=== PATIENT | male | born 1950 | race Caucasian/White ===

== ENCOUNTER 2017-09-10 11:55 | Emergency (ER) | payer MEDICARE, OTHER ==
[2017-09-10] MEDS ORDERED: ONDANSETRON HCL IV 4 MG/2 ML VIAL IVP ONE (12:03)
[2017-09-10] MEDS ORDERED: 0.9 % SODIUM CHLORIDE 1,000 ML BAG IV ONE (12:03)
--- NOTE | 2017-09-10 12:08 | Emergency Department Record ---
History of Present Illness - General Chief complaint: Vomiting Stated complaint: VOMITING/BODY ACHES Time Seen by Provider: 09/10/17 11:58 Source: Patient Mode of Arrival: Ambulatory Limitations: No limitations - History of Present Illness Initial comments: 67 yo male presents with three days of nausea, vomiting and diarrhea. No fevers. No blood in either the vomit or the diarrhea. He has some waves of cramps at times. He did have a sore throat a week prior that resolved. No cough, chest pain, or shortness of breath. His PCP is Dr Chin. complaint: Abdominal pain, Diarrhea, Nausea, Vomiting -: Days(s) (3) Description of Vomiting: Watery Description of Diarrhea: Water Location: Diffuse Radiation: None Severity: Moderate Quality: Cramping Consistency: Constant Improves with: None Worsens with: None Context: Other Associated Symptoms: Loss of appetite - Related Data Previous Rx's Medication Instructions Recorded Aspirin 81 mg PO DAILY #30 tab.chew 10/23/15 Doxycycline Monohydrate 100 mg PO BID #14 capsule 09/10/17 Ondansetron [Zofran Odt] 4 mg PO Q8H #15 tab.rapdis 09/10/17 Pantoprazole Sodium [Protonix] 40 mg PO DAILY #30 tablet. 09/10/17 Allergies Allergy/AdvReac Type Severity Reaction Status Date / Time [id number] Reductase Allergy Severe PT UNSURE Unverified 08/26/17 09:57 Inhibitor OF REACTION Review of Systems Constitutional: Reports: Weakness. Denies: Chills, Fever, Malaise Eyes: Denies: Eye discharge, Eye pain, Photophobia, Vision change ENT: Denies: Congestion, Throat pain Respiratory: Denies: Cough, Dyspnea, Hemoptysis, Stridor, Wheezes Cardiovascular: Denies: Chest pain, Palpitations, Syncope Endocrine: Denies: Fatigue, Polydipsia, Polyuria Gastrointestinal: Reports: As per HPI, Abdominal pain, Diarrhea, Nausea, Vomiting. Denies: Constipation, Hematemesis, Hematochezia, Melena Genitourinary: Denies: Dysuria, Frequency, Hematuria Musculoskeletal: Denies: Arthralgia, Back pain, Myalgia Skin: Denies: Bruising, Change in color, Rash Neurological: Denies: Headache, Numbness, Weakness Psychiatric: Denies: Anxiety Hematological/Lymphatic: Denies: Easy bleeding, Easy bruising, Swollen glands Past Medical History - SOCIAL HISTORY Smoking Status: Never smoker Drug Use: None - RESPIRATORY Hx Respiratory Disorders: Yes Hx COPD: Yes - CARDIOVASCULAR Hx Cardio Disorders: Yes Hx Cardiac Cath: Yes (3 stents RCA, distal RCA, Mid RCA, by Dr Rojas) Hx Heart Attack: Yes Hx Hypertension: Yes - NEURO Hx Neuro Disorders: No - GI Hx GI Disorders: Yes Hx Reflux: Yes - Hx Genitourinary Disorders: Yes Hx Prostate Problems: Yes (BPH) - ENDOCRINE Hx Endocrine Disorders: No Hx Diabetes: No Hx Thyroid Disease: No - MUSCULOSKELETAL Hx Musculoskeletal Disorders: Yes Hx Arthritis: Yes - PSYCH Hx Psych Problems: No - HEMATOLOGY/ONCOLOGY Hx Hematology/Oncology Disorders: No Hx Blood Transfusions: No Family Medical History Hx HTN: Father, Mother, Brother/Sister, Grandparents Hx Stroke: Grandparents Physical Exam - General General Appearance: Alert, Oriented x3, Cooperative, No acute distress Limitations: No limitations - Head Head exam: Normal inspection - Eye Eye exam: Normal appearance, PERRL. negative: Conjunctival injection, Scleral icterus - ENT ENT exam: Normal exam, Mucous membranes moist, Normal orophraynx Ear exam: Normal external inspection Nasal Exam: Normal inspection Mouth exam: Normal external inspection - Neck Neck exam: Normal inspection, Full ROM. negative: Tenderness - Respiratory Respiratory exam: Normal lung sounds bilaterally. negative: Respiratory distress - Cardiovascular Cardiovascular Exam: Normal rhythm, Normal heart sounds, Tachycardia - GI/Abdominal GI/Abdominal exam: Soft, Tenderness (very soft abdomen with mild tenderness lower. No rebound or guarding). negative: Guarding, Rebound, Rigid - Rectal Rectal exam: Deferred - exam: Deferred - Extremities Extremities exam: Normal inspection, Full ROM, Normal capillary refill. negative: Tenderness Image of Full Body: 1 - 1cm scam with 1cm surrounding erythema (cat bite site), no pus, no streaking. - Back Back exam: Reports: Full ROM. Denies: CVA tenderness (R), CVA tenderness (L) - Neurological Neurological exam: Alert, Oriented X3 - Psychiatric Psychiatric exam: Normal affect, Normal mood - Skin Skin exam: Dry, Intact, Normal color, Warm Course - Reevaluation(s) Reevaluation #1: 09/10/17 13:02 The labs were reviewed The CBC demonstrates WBC of 12 The CMP is normal except AG is 19 09/10/17 14:54 No vomiting or diarrhea Resting comfortably. Waiting for CT scan 09/10/17 16:45 CT demonstrated distal stomach edema may suggest gastritis, coronary calcifications (known CAD), hernia. NO obstruction, no other inflammatory changes. DC on zofran and PPI. The patient was informed of the CT report. I reported he will need to discuss the results of the CT with his PCP for possible upper GI evaluation. No vomiting or diarrhea in the ED 09/10/17 16:55 He still has slight redness at a cat bit site. Doxycycline Rx provided as well. Medical Decision Making - Lab Data Result diagrams: 09/10/17 12:10 09/10/17 12:10 Disposition Disposition: Discharge Clinical Impression: Vomiting and diarrhea Disposition: Home, Self-Care Condition: (1) Good Instructions: Acute Nausea and Vomiting (ED), Acute Diarrhea (ED) Additional Instructions: Rest and stay well hydrated Call Dr Chin first of the week for a recheck Take the Zofran as needed for nausea Return if you have fever, pain, vomiting You have some swelling in the stomach on CT that could be inflammation, gastritis or ulcer See your doctor to review the CT. You may need a GI referral for a scope of your stomach. Prescriptions: Doxycycline Monohydrate 100 mg PO BID #14 capsule Ondansetron [Zofran Odt] 4 mg PO Q8H #15 tab.rapdis Pantoprazole Sodium [Protonix] 40 mg PO DAILY #30 tablet. Forms: Patient Portal Access Time of Disposition: 16:48 Quality - Quality Measures Quality Measures: N/A - Blood Pressure Screening Does Patient Have Any of the Following: Active Dx of HTN Blood Pressure Classification: Hypertensive Reading Systolic Measurement: 135 Diastolic Measurement: 98 Screening for High Blood Pressure: Patient Exclusion, Hx of HTN [G9744]
[2017-09-10 12:19] LABS: BASO % 0.2 % (0-6); EOS % 0.2 % (0-6); GRAN % 73.9 % (47-80); HEMATOCRIT 50.6 % (42.0-52.0); HEMOGLOBIN 17.3 gm/dl (14.0-18.0); LYMPH % 13.5 % (16-45); MEAN CELL VOLUME 90.7 fl (81-97); MEAN CORPUSCULAR HGB CONC 34.2 g/dl (32-36); MEAN PLATELET VOLUME 9.8 fl (7.4-10.4); MONO % 12.2 % (0-9); PLATELET COUNT 279 K/uL (130-400); RED BLOOD COUNT 5.58 M/uL (4.40-5.70); RED CELL DISTRIBUTION WIDTH 13.9 % (11.5-14.5); WHITE BLOOD COUNT W/O DIFF 12.8 K/uL (4.2-12.2)
[2017-09-10 12:28] LABS: BLOOD UREA NITROGEN 19 mg/dL (8-23); CREATININE 1.2 mg/dL (0.7-1.2); EST GLOMERULAR FILTRATION RATE > 60 mL/min
[2017-09-10 12:29] LABS: TOTAL PROTEIN 8.3 g/dL (6.6-8.7)
[2017-09-10 12:31] LABS: GLUCOSE,RANDOM 129 mg/dL (74-109)
[2017-09-10 12:33] LABS: ALT/SGPT 16 U/L (<41)
[2017-09-10 12:34] LABS: ALB/GLOB RATIO 1.1 (1.1-1.8); ALBUMIN 4.4 g/dL (4.0-5.0); ALKALINE PHOSPHATASE 81 U/L (40-129); AST/SGOT 16 U/L (10.0-50.0); LIPASE 29 U/L (13-60)
--- NOTE | 2017-09-11 16:50 | CT SCAN REPORT ---
DATE: 09/10/2017. EXAM: EMERGENCY CT OF THE ABDOMEN AND PELVIS WITH CONTRAST. HISTORY: Abdominal pain, vomiting, and diarrhea. Prior hernia repair on the right side. TECHNIQUE: Axial CT scan of the abdomen and pelvis was performed with oral and intravenous contrast. Please see the medical record for contrast specifics. COMPARISON: No prior CT of the abdomen and pelvis. FINDINGS: Fairly prominent coronary artery calcification is present. Heart size is normal. No pleural or pericardial effusion evident. No calcified gallstones are seen within the gallbladder. No definite hepatic, splenic, adrenal, pancreatic, or renal mass identified. There are probably bilateral inguinal hernias containing adipose tissue but no bowel. There may be a small amount of fluid in the left inguinal hernia inferiorly in the lower-most images. A small amount of free fluid in the pelvis, nonspecific. Moderate diverticulosis in the left side of the colon with no diverticulitis evident. Oral contrast given is passed throughout the small bowel into the colon with no small bowel obstruction evident. The appendix is visualized and appears negative with no appendicitis evident. Small periumbilical anterior abdominal wall hernia containing adipose tissue but with no bowel. No free air evident. Diffuse degenerative disc disease throughout the visualized thoracic and lumbar spine. There does appear to be some localized thickening of the wall of the distal stomach and somewhat low-attenuation which may represent some edema in this region. This could represent a distal gastritis. Clinical correlation is suggested. IMPRESSION: 1. PROMINENT CORONARY ARTERY CALCIFICATION. 2. SOME RELATIVELY LOW-ATTENUATION THICKENING OF THE WALL OF THE DISTAL STOMACH , QUESTIONABLY REPRESENTING AN ANTRAL GASTRITIS. 3. DIFFUSE DEGENERATIVE CHANGES IN THE SPINE. 4. SMALL PERIUMBILICAL ANTERIOR ABDOMINAL WALL HERNIA AND BILATERAL INGUINAL HERNIAS CONTAINING ADIPOSE TISSUE BUT NO BOWEL. 5. A VERY SMALL AMOUNT OF FREE FLUID. NO FREE AIR EVIDENT. 6. APPENDIX IS NEGATIVE. JOB NUMBER: [id number] [facility]
== END 2017-09-10 17:05 | disposition home or self-care (01) ==
LOC: ER 11:55
DX: R11.10 Vomiting, unspecified (principal); R19.7 Diarrhea, unspecified; R19.09 Other intra-abdominal and pelvic swelling, mass and lump; I10 Essential (primary) hypertension
CPT/HCPCS: 74177; 80053; 83690; 85025; 99283; 99284; J2405; J7030

== ENCOUNTER 2018-03-13 19:03 | Emergency (ER) | payer MEDICARE, OTHER ==
--- NOTE | 2018-03-13 19:22 | Emergency Department Record ---
History of Present Illness - General Stated Complaint: SYNCOPE Time Seen by Provider: 03/13/18 19:15 Source: Patient, EMS Mode of Arrival: EMS Limitations: No limitations - History of Present Illness Initial Comments: 67 yo male presents to ED for evaluation following a syncopal episode while at [employer] this evening. Patient denies history of chest pain or previous syncope. Patient reports a slip and fall yesterday with injury to the head, reports that he does take a blood thinner but does not know what medication he takes. Patient denies headache symptoms at this time. Patient does report a history of CAD s/p stenting as well as previous CVA. Complaint: Collapsed Onset/Timin -: Minutes(s) Prodromal Symptoms: None Witnessed: Yes - by bystander Injuries Sustained Associated with Event: None Current Symptoms: None History: History of CAD Treatments Prior to Arrival: None - Kaitlin Coma Scale Eye Response: (4) Open spontaneously Motor Response: (6) Obeys commands Verbal Response: (5) Oriented [place] Total: 15 - Related Data Previous Rx's Medication Instructions Recorded Aspirin 81 mg PO DAILY #30 tab.chew 10/23/15 Doxycycline Monohydrate 100 mg PO BID #14 capsule 09/10/17 Ondansetron [Zofran Odt] 4 mg PO Q8H #15 tab.rapdis 09/10/17 Pantoprazole Sodium [Protonix] 40 mg PO DAILY #30 tablet. 09/10/17 Allergies Allergy/AdvReac Type Severity Reaction Status Date / Time [id number] Reductase Allergy Severe PT UNSURE Unverified 08/26/17 09:57 Inhibitor OF REACTION Review of Systems Constitutional: Denies: Chills, Fever, Malaise, Night sweats Eyes: Denies: Eye discharge, Eye pain ENT: Denies: Congestion, Ear pain, Epistaxis Respiratory: Denies: Cough, Dyspnea Cardiovascular: Reports: Syncope. Denies: Chest pain, Dyspnea on exertion Endocrine: Denies: Fatigue, Heat or cold intolerance Gastrointestinal: Denies: Abdominal pain, Nausea, Vomiting Genitourinary: Denies: Incontinence, Retention Musculoskeletal: Denies: Arthralgia, Back pain, Gout, Joint swelling Skin: Denies: Bruising, Change in color Neurological: Denies: Abnormal gait, Confusion, Headache, Seizure Psychiatric: Denies: Anxiety Hematological/Lymphatic: Reports: Easy bleeding, Easy bruising. Denies: Anemia , Blood Clots Past Medical History - SOCIAL HISTORY Smoking Status: Never smoker Drug Use: None - RESPIRATORY Hx Respiratory Disorders: Yes Hx COPD: Yes - CARDIOVASCULAR Hx Cardio Disorders: Yes Hx Cardiac Cath: Yes (3 stents RCA, distal RCA, Mid RCA, by Dr Rojas) Hx Heart Attack: Yes Hx Hypertension: Yes - NEURO Hx Neuro Disorders: No - GI Hx GI Disorders: Yes Hx Reflux: Yes - Hx Genitourinary Disorders: Yes Hx Prostate Problems: Yes (BPH) - ENDOCRINE Hx Endocrine Disorders: No Hx Diabetes: No Hx Thyroid Disease: No - MUSCULOSKELETAL Hx Musculoskeletal Disorders: Yes Hx Arthritis: Yes - PSYCH Hx Psych Problems: No - HEMATOLOGY/ONCOLOGY Hx Hematology/Oncology Disorders: No Hx Blood Transfusions: No Family Medical History Hx HTN: Father, Mother, Brother/Sister, Grandparents Hx Stroke: Grandparents Physical Exam - General General Appearance: Alert, Oriented x3, Cooperative, No acute distress Limitations: No limitations - Head Head exam: Atraumatic, Normocephalic, Normal inspection Head exam detail: negative: Abrasion, Contusion, Galvez's sign, General tenderness, Hematoma, Laceration - Eye Eye exam: Normal appearance. negative: Conjunctival injection, Periorbital swelling, Periorbital tenderness, Scleral icterus - ENT Ear exam: negative: Auricular hematoma, Auricular trauma Nasal Exam: negative: Active bleeding, Discharge, Dried blood, Foreign body Mouth exam: negative: Drooling, Laceration, Muffled voice, Tongue elevation - Neck Neck exam: Normal inspection. negative: Meningismus, Tenderness - Respiratory Respiratory exam: Normal lung sounds bilaterally. negative: Rales, Respiratory distress, Rhonchi, Stridor - Cardiovascular Cardiovascular Exam: Regular rate, Normal rhythm, Normal heart sounds - GI/Abdominal GI/Abdominal exam: Soft. negative: Rebound, Rigid, Tenderness - Rectal Rectal exam: Deferred - exam: Deferred - Extremities Extremities exam: Normal inspection. negative: Calf tenderness, Pedal edema, Tenderness - Back Back exam: Denies: CVA tenderness (R), CVA tenderness (L) - Neurological Neurological exam: Alert, Oriented X3. negative: Motor sensory deficit - Psychiatric Psychiatric exam: Normal affect, Normal mood - Skin Skin exam: Normal color. negative: Abrasion Type of lesion: negative: abrasion Course - Reevaluation(s) Reevaluation #1: 03/13/18 19:54 Laboratory studies were reviewed and are grossly unremarkable for an acute process. Reevaluation #2: 03/13/18 20:13 CT Brain: No acute intra-cranial disease is present. Reevaluation #3: 03/13/18 20:16 Case was discussed with Dr. Vogel, will transfer to [facility] following our discussion for possible heart cath tomorrow. Medical Decision Making - Lab Data Result diagrams: 03/13/18 19:15 03/13/18 19:15 Disposition Disposition: Transfer Clinical Impression: Syncope Qualifiers: Syncope type: unspecified Qualified Code(s): R55 - Syncope and collapse CAD (coronary artery disease) Qualifiers: Coronary Disease-Associated Artery/Lesion type: [place] artery [place] vs. transplanted heart: [place] heart Associated angina: with unspecified angina Qualified Code(s): I25.119 - Atherosclerotic heart disease of [place] coronary artery with unspecified angina pectoris Disposition: Acute Care Hospital Transfer Transfer To: [facility] Reason For Transfer: Cardiac evaluation Accepting Physician: Lela Time Discussed w/Accepting Physician: 20:17 Condition: (2) Stable Time of Disposition: 20:17 Quality - Quality Measures Quality Measures: N/A - Blood Pressure Screening Does Patient Have Any of the Following: Active Dx of HTN Systolic Measurement: ~ Screening for High Blood Pressure: Patient Exclusion, Hx of HTN [G9744]
[2018-03-13 19:26] LABS: BASO % 0.5 % (0-6); EOS % 2.9 % (0-6); GRAN % 55.5 % (47-80); HEMATOCRIT 44.3 % (42.0-52.0); HEMOGLOBIN 14.8 gm/dl (14.0-18.0); LYMPH % 28.8 % (16-45); MEAN CORPUSCULAR HEMOGLOBIN 30.1 pg (27-33); MEAN CORPUSCULAR HGB CONC 33.4 g/dl (32-36); MEAN PLATELET VOLUME 9.4 fl (7.4-10.4); MONO % 12.3 % (0-9); PLATELET COUNT 260 K/uL (130-400); RED BLOOD COUNT 4.92 M/uL (4.40-5.70); RED CELL DISTRIBUTION WIDTH 14.3 % (11.5-14.5); WHITE BLOOD COUNT W/O DIFF 7.5 K/uL (4.2-12.2)
[2018-03-13 19:31] LABS: BLOOD UREA NITROGEN 18 mg/dL (8-23); CREATININE 1.6 mg/dL (0.7-1.2); EST GLOMERULAR FILTRATION RATE 46 mL/min; TOTAL PROTEIN 7.5 g/dL (6.6-8.7)
[2018-03-13 19:33] LABS: PROTHROMBIN TIME (PATIENT) 10.1 SECONDS (9.5-12.1)
[2018-03-13 19:34] LABS: GLUCOSE,RANDOM 115 mg/dL (74-109)
[2018-03-13 19:36] LABS: ALB/GLOB RATIO 1.3 (1.1-1.8); ALBUMIN 4.3 g/dL (4.0-5.0); ALKALINE PHOSPHATASE 73 U/L (40-129); ALT/SGPT 20 U/L (<41); AST/SGOT 19 U/L (10.0-50.0)
--- NOTE | 2018-03-15 08:05 | CT SCAN REPORT ---
EXAM: NONCONTRAST CT OF THE BRAIN HISTORY: LOSS OF CONSCIOUSNESS. TECHNIQUE: Noncontrast CT of the brain was obtained. Comparison: CT of the brain 11/02/12. FINDINGS: No midline shift, mass effect, or abnormal intra or extraaxial fluid collection. No cerebral edema, focal mass or intracranial hemorrhage is detected. Mild periventricular and subcortical white matter hypoattenuation which appears similar from 2013 comparison. The ventricles are nondilated. No evidence of displaced calvarial fracture. The visualized paranasal sinuses and mastoid air cells are clear. IMPRESSION: 1. NO ACUTE INTRACRANIAL FINDINGS. 2. LIKELY MILD CHRONIC SMALL VESSEL ISCHEMIC WHITE MATTER CHANGES WHICH APPEAR SIMILAR FROM 2013 CT HEAD COMPARISON. JOB NUMBER: [id number] [facility]
== END 2018-03-13 21:00 | disposition short-term general hospital (02) ==
LOC: ER 19:03
DX: S09.90XA Unspecified injury of head, initial encounter (principal); R55 Syncope and collapse; R11.2 Nausea with vomiting, unspecified; I25.119 Atherosclerotic heart disease of native coronary artery with unspecified angina pectoris; J44.9 Chronic obstructive pulmonary disease, unspecified; I10 Essential (primary) hypertension; Z95.5 Presence of coronary angioplasty implant and graft; Z79.01 Long term (current) use of anticoagulants; Z86.73 Personal history of transient ischemic attack (TIA), and cerebral infarction without residual deficits; W19.XXXA Unspecified fall, initial encounter; Y92.22 Religious institution as the place of occurrence of the external cause; Z91.81 History of falling
CPT/HCPCS: 70450; 80053; 83735; 84484; 85025; 85610; 93005; 93010; 99285